=== PATIENT | female | born 1985 | race Caucasian/White ===

== ENCOUNTER 2016-04-04 13:16 | Emergency (ER) | payer OTHER ==
[~2016-04-04 13:16] MED LIST: PERCOCET1 TA1 PO; ZOFRAN ODT4 MG PO; ZYVOX600 MG PO
--- NOTE | 2016-04-04 15:39 | DIAGNOSTIC IMAGING REPORT ---
PROCEDURE: CT ABDOMEN/PELVIS W/O CONTRAST INDICATION: Flank pain and urinary tract infection. TECHNIQUE: Noncontrast axial images with sagittal and coronal reformations. COMPARISON: Compared to CT abdomen pelvis on 12/09/2013. FINDINGS: ABDOMEN: There is a 6 mm nonobstructing calculus in the mid portion of the right kidney which appears unchanged. Kidneys and ureters are otherwise normal. No evidence of urinary tract obstruction. Gallbladder, liver, spleen, pancreas, and aorta are normal. Bowel pattern is normal. Status post appendectomy (surgical mesh). PELVIS: Uterus and adnexal structures are within normal limits a small punctate dystrophic calcification of the ventral uterus. No evidence of free fluid. IMPRESSION: 1. There is a 6 mm nonobstructing calculus in the midportion of the right kidney which is unchanged. 2. Status post appendectomy. 3. Otherwise negative CT abdomen and pelvis. 4. Findings discussed with KEVIN Farias. All CT scans at this facility use dose modulation, iterative reconstruction, and/or weight-based dosing when appropriate to reduce radiation dose to as low as reasonably achievable.
--- NOTE | 2016-04-04 16:11 | ED ORDER SUMMARY ---
..... Patient: JASON PEREZ OrderSheet [facility] VisitID: [id number] [address] [place] [address] 30y, F Registration Date/Time: 04/04/2016 ORDER SHEET Weight: 63.5 kg (stated) Allergies: No Known Drug Allergy GENERAL ORDERS: UA-Culture if indicated Urgent (13:51 04/04/2016 LNations ER Tech1 per protocol) (14:10 NHouse ER Tech1) Urine Urgent (14:04/04/2016 HBivens A.R.N.P.) (14:10 NHouse ER Tech1) CT Abd/Pel wo Cont Urgent (14:34 04/04/2016 HBivens A.R.N.P.) (Ack 14:35 NHouse ER Tech1) (14:56 Becca) CBC w Diff Urgent (14:36 04/04/2016 HBivens A.R.N.P.) (Ack 14:38 NHouse ER Tech1) (15:18 SRoberts R.N.) BMP Urgent (14:36 04/04/2016 HBivens A.R.N.P.) (Ack 14:38 NHouse ER Tech1) (15:18 SRoberts R.N.) MEDICATION ORDERS: Toradol IM 60 mg (NOW) (14:34 04/04/2016 HBivens A.R.N.P.) (Cancelled: Other14:35 HBivens A.R.N.P.) Zofran ODT PO 4 mg (NOW) (14:34 04/04/2016 HBivens A.R.N.P.) (Cancelled: Physician Order15:15 SRoberts R.N.) IV FLUIDS: IV NS : initial bolus 1000 mL (1000 mL/hr), then none - for X1 (NOW) (14:35 04/04/2016 HBivens A.R.N.P.) (Ack 14:45 SRoberts R.N.) (15:16 SRoberts R.N.) Toradol IV 30 mg (NOW) (14:35 04/04/2016 HBivens A.R.N.P.) (Ack 14:45 SRoberts R.N.) (15:17 SRoberts R.N.) IV Saline Lock (14:36 04/04/2016 HBivens A.R.N.P.) (Ack 14:45 SRoberts R.N.) (15:15 SRoberts R.N.) Zofran IV 4 mg (NOW) (15:17 04/04/2016 SRoberts R.N. verbal order read back to HBivens A.R.N.P.) (15:18 SRoberts R.N.) ORDER SHEET NOTES: [Electronically signed by Mary Jane Holbrook R.N. (16:28 04/04/2016)] [Electronically signed by Debora De La FuenteRChivoNChivoPChivo (22:04 04/04/2016)] [Electronically locked/signed by Mary Jane Holbrook R.N. (16:28 04/04/2016)]
--- NOTE | 2016-04-04 16:11 | ED ORDER SUMMARY ---
..... Patient: JASON PEREZ OrderSheet [facility] VisitID: [id number] [address] [place] [address] 30y, F Registration Date/Time: 04/04/2016 ORDER SHEET Weight: 63.5 kg (stated) Allergies: No Known Drug Allergy GENERAL ORDERS: UA-Culture if indicated Urgent (13:51 04/04/2016 LNations ER Tech1 per protocol) (14:10 NHouse ER Tech1) Urine Urgent (14:04/04/2016 HBivens A.R.N.P.) (14:10 NHouse ER Tech1) CT Abd/Pel wo Cont Urgent (14:34 04/04/2016 HBivens A.R.N.P.) (Ack 14:35 NHouse ER Tech1) (14:56 Becca) CBC w Diff Urgent (14:36 04/04/2016 HBivens A.R.N.P.) (Ack 14:38 NHouse ER Tech1) (15:18 SRoberts R.N.) BMP Urgent (14:36 04/04/2016 HBivens A.R.N.P.) (Ack 14:38 NHouse ER Tech1) (15:18 SRoberts R.N.) MEDICATION ORDERS: Toradol IM 60 mg (NOW) (14:34 04/04/2016 HBivens A.R.N.P.) (Cancelled: Other14:35 HBivens A.R.N.P.) Zofran ODT PO 4 mg (NOW) (14:34 04/04/2016 HBivens A.R.N.P.) (Cancelled: Physician Order15:15 SRoberts R.N.) IV FLUIDS: IV NS : initial bolus 1000 mL (1000 mL/hr), then none - for X1 (NOW) (14:35 04/04/2016 HBivens A.R.N.P.) (Ack 14:45 SRoberts R.N.) (15:16 SRoberts R.N.) Toradol IV 30 mg (NOW) (14:35 04/04/2016 HBivens A.R.N.P.) (Ack 14:45 SRoberts R.N.) (15:17 SRoberts R.N.) IV Saline Lock (14:36 04/04/2016 HBivens A.R.N.P.) (Ack 14:45 SRoberts R.N.) (15:15 SRoberts R.N.) Zofran IV 4 mg (NOW) (15:17 04/04/2016 SRoberts R.N. verbal order read back to HBivens A.R.N.P.) (15:18 SRoberts R.N.) ORDER SHEET NOTES: [Electronically signed by Mary Jane Holbrook R.N. (16:28 04/04/2016)] [Electronically signed by Debora De La FuenteRChivoNChivoPChivo (22:04 04/04/2016)] [Electronically locked/signed by Mary Jane Holbrook R.N. (16:28 04/04/2016)]
--- NOTE | 2016-04-04 16:11 | ED NURSING NOTES ---
Clinical Report - Nurses [facility] [address] [place] [address] 04/04/2016 13:18 Patient: JASON PEREZ TRIAGE Triage time 13:53. Acuity: LEVEL 3. Chief Complaint: PAINFUL URINATION, URGENCY and FREQUENCY and ABDOMINAL PAIN, LOW BACK PAIN and RIGHT-SIDED and LEFT-SIDED FLANK PAIN ("Feels like kidney problems. 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 Alert. No acute distress. SEPSIS SCREEN: Sepsis Screen: negative. Negative (no infection suspected/documented). --14:01 Mary Jane Holbrook R.N. 13:53 04/04/16. BP: 110/67. HR: 86. RR: 18. O2 saturation: 97% on room air. Temp: 98.1 F. Pain level now: 01/11. --14:01 Mary Jane Holbrook R.N. 13:53 04/04/16. BP: 110/67. HR: 86. RR: 18. O2 saturation: 97% on room air. Temp: 98.1 F. Pain level now: 01/11. --14:02 Mary Jane Holbrook R.N. Weight: 63.5 kg stated. Height/Length: 62 inches Per Patient. BMI: 25.6. --13:59 Mary Jane Holbrook R.N. Medications Vitamins Oral. --13:56 Mary Jane Holbrook R.N. Tylenol Oral. --13:57 Mary Jane Holbrook R.N. Probiotic. --13:57 Mary Jane Holbrook R.N. Medication/allergy information source: the patient. --14:01 Mary Jane Holbrook R.N. Allergies No Known Drug Allergy. --13:56 Mary Jane Holbrook R.N. History Arrived by private vehicle. Historian: patient. Primary physician (graciela). ( dropped off). This started yesterday. 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 PAST MEDICAL HX: Immunizations: status is unknown. Last normal menstrual period- Mar 10. SOCIAL HX: Smoker- current status unknown. No alcohol use or drug use. No infectious disease exposure. FALL RISK ASSESSMENT: Fall risk assessment completed. No fall risk identified. NUTRITIONAL RISK ASSESSMENT: The nutritional risk assessment revealed no deficiencies. FUNCTIONAL ASSESSMENT: Functional assessment: no impairments noted. LEARNING NEEDS ASSESSMENT: The learning needs assessment revealed no barriers. SKIN INTEGRITY ASSESSMENT: Skin integrity risk assessment completed. No skin integrity risk identified. --14:01 Mary Jane Holbrook R.N. PROBLEMS: Dysfunctional Uterine Bleeding. Abscess. Cellulitis. Concussion. Last Tetanus. Kidney stones. Contusion. Fall. Nephrolithiasis. --13:58 Mary Jane Holbrook R.N. UTI - Urinary Tract Infection. --13:59 Mary Jane Holbrook R.N. ADDITIONAL SURGERIES: Appendectomy. [place] teeth. --13:58 Mary Jane Holbrook R.N. Interventions ID band on patient. To room. --14:01 Mary Jane Holbrook R.N. PHYSICAL ASSESSMENT Ambulatory to room. Patient gowned. GENERAL / NEURO / PSYCH: Alert. Oriented X 4. Appears anxious. HEENT: Mucous membranes are pink. RESPIRATORY: Respirations not labored. CVS: Capillary refill less than 2 seconds. GI / : Abdominal tenderness in the lower abdomen. SKIN: Skin is warm and dry. --14:02 Mary Jane Holbrook R.N. NURSING PROGRESS NOTES Patient gowned. Head of bed elevated. Two patient identifiers checked. Call light placed in reach. Side rails up x 1. Bed placed in lowest position. Brakes of bed on. Patient ready for evaluation. --14:02 Mary Jane Holbrook R.N. 14:02. ( As I'm leaving the room. The patient "asked for nausea and pain medicine now". Patient give and emesis bag.). --14:11 Mary Jane Holbrook R.N. 14:50 04/04/2016 Site #1 started via IV in the left antecubital space with an 20g angiocath, with aseptic technique and good blood return; one attempt. Blood drawn: rainbow set. Labeled in the presence of the patient and sent to the lab. Saline lock flushed with 10 mL saline. --15:15 Mary Jane Holbrook R.N. 14:51 04/04/2016 Started bag #1 1000 mL IV Fluids IV NS (Saline); bolus of 1000 mL over 1 hour(s) then at 1000 mL/hr over 1 minute(s) via site #1 via IV pump. Allergies verified and confirmed 5 rights. IV patency established. IV site checked: no pain, redness, or swelling. IV flushed thoroughly pre- and post-medication administration. --15:16 Mary Jane Holbrook R.N. 14:53 04/04/2016 Zofran (Ondansetron HCl) IVP 4 mg given over 1 minute(s) via site #1. Allergies verified and confirmed 5 rights. IV patency established. IV site checked: no pain, redness, or swelling. IV flushed thoroughly pre- and post-medication administration. IVP given by RN. --15:18 Mary Jane Holbrook R.N. 15:02 04/04/2016 Toradol IVP 30 mg given over 1 minute(s) via site #1. Allergies verified and confirmed 5 rights. IV patency established. IV site checked: no pain, redness, or swelling. IV flushed thoroughly pre- and post-medication administration. IVP given by RN. --15:17 Mary Jane Holbrook R.N. 16:04 04/04/2016 IV Fluids IV NS Discontinued: bag #1 infused. Total amount infused: 1000 mL. IV patency established. IV site checked: no pain, redness, or swelling. IV flushed thoroughly. --16:04 Mary Jane Holbrook R.N. 16:06 04/04/16. BP: 108/62. HR: 59. RR: 16. O2 saturation: 100%. Temp: deferred. Pain level now: 11/11. --16:07 Mary Jane Holbrook R.N. DISPOSITION / DISCHARGE 16:25. Condition at departure: improved. No learning barriers present. Discharge instructions provided and reviewed with the patient. Reviewed medication(s) side effects, precautions, dosing and course information. Prescription(s) given to the patient. Patient verbalized understanding. Written instructions provided in Lao. The patient was discharged home and accompanied by spouse. She left the Emergency Department ambulatory and via private vehicle. Spouse driving. --16:28 Mary Jane Holbrook R.N. 16:06 04/04/16. BP: 108/62. HR: 59. RR: 16. O2 saturation: 100%. Temp: deferred. Pain level now: 11/11. 15:05 04/04/16. BP: 110/67. HR: 70. RR: 18. O2 saturation: 100% on room air. Pain level now: 10/11. 13:53 04/04/16. BP: 110/67. HR: 86. RR: 18. O2 saturation: 97% on room air. Temp: 98.1 F. Pain level now: 01/11. --16:28 Mary Jane Holbrook R.N. Locked/Released at 04/04/2016 16:28 by Mary Jane Holbrook R.N.
--- NOTE | 2016-04-04 16:11 | ED CLINICAL REPORT ---
Clinical Report - Physicians/Mid Levels [facility] [address] [place] [address] 04/04/2016 13:18 Patient: JASON PEREZ Time Seen: 1357; upon arrival, initial patient contact, initial documentation, patient care assumed. Arrived- By private vehicle. Historian- patient. HISTORY OF PRESENT ILLNESS Chief Complaint: DYSURIA. This started yesterday and still present. It was abrupt in onset. The symptoms are described as severe. Modifying factors. Not worsened by anything. Not relieved by anything. The patient has had severe abdominal pain. The pain is described as generalized. She has had severe, constant right-sided, suprapubic and left-sided pelvic pain. She has had severe, constant right-sided, left-sided and centrally located lower back pain. She has had severe, constant right-sided and left-sided flank pain. No vaginal pain, vaginal discharge or hematuria. She has had pain with urination and urgency of urination. The patient has had urinary frequency. Sexually active. (says the pain feels like her kidney pain, but she also has lots of other issues going on that she wants checked out too). Similar symptoms previously: Occasionally, milder. Recent medical care: Not recently seen/assessed. REVIEW OF SYSTEMS The patient has had severe nausea. No vomiting or black stools. She has had severe diarrhea ('like 30 times'). This has occurred numerous times. No bloody, watery, mucous containing or blood-tinged diarrhea. She has had fever of 102 F, a severe, constant headache. No history of recent trauma and chills. She has had severe difficulty breathing (hurts to breathe). The patient denies dyspnea on exertion, orthopnea, paroxysmal nocturnal dyspnea and wheezing. She complains of severe, sharp left-sided, central and right-sided chest pain, currently severe. All systems otherwise negative, except as recorded above. PAST HISTORY See nurses notes. ( PROBLEMS: Dysfunctional Uterine Bleeding. Abscess. Cellulitis. Concussion. Last Tetanus. Kidney stones. Contusion. Fall. Nephrolithiasis. --13:58 Mary Jane Holbrook R.N. UTI - Urinary Tract Infection. --13:59 Mary Jane Holbrook R.N. ADDITIONAL SURGERIES: Appendectomy. [place] teeth. --13:58 Mary Jane Holbrook R.N.). SOCIAL HISTORY Never smoker. No alcohol use or drug use. No recent travel. Is a local resident. FAMILY HISTORY Negative. ADDITIONAL NOTES The nursing notes have been reviewed with agreement regarding the chief complaint, HPI, ROS, PMH and patient medications and allergies. PHYSICAL EXAM Vital Signs: 04/04/2016 13:53 BP: 110/67. HR: 86. RR: 18. O2 saturation: 97%. Temp: 98.1 F. Pain level now: 01/11. Have been reviewed as normal and appear to be correct. Appearance: Alert. Oriented X3. No acute distress. HEENT: Normal external inspection. ENT: Pharynx normal. Neck: Neck supple. CVS: Heart sounds normal. Respiratory: No respiratory distress. Breath sounds normal. Chest nontender. Abdomen: Soft. Severe tenderness diffusely. Bowel sounds normal. No organomegaly. No mass. Tenderness present. Back: Abnormal external inspection. Severe CVA tenderness on the right and left. (pt jumping every time I go to touch her, she jumps). Skin: Skin warm and dry. Normal skin color. No rash. Normal skin turgor. Extremities: Extremities nontender. No lower extremity edema. Neuro: Oriented X 3. Mood/affect normal. No motor deficit. No sensory deficit. LABS, X-RAYS, AND EKG Abdominal CT: . IMPRESSION: 1. There is a 6 mm nonobstructing calculus in the midportion of the right kidney which is unchanged. 2. Status post appendectomy. 3. Otherwise negative CT abdomen and pelvis. 4. Findings discussed with KEVIN Farias. All CT scans at this facility use dose modulation, iterative reconstruction, and/or weight-based dosing when appropriate to reduce radiation dose to as low as reasonably achievable. Electronically Final signed by:Stephen Alves MD 04/04/2016 3:38:21 PM. The study was interpreted by the radiologist and discussed with the radiologist. Interpretation time: 1535. Laboratory Tests: UA-Culture if indicated: (SHERRY: 04/04/2016 13:40) ( [facility] 04/04/2016 14:21) Final results Test Result Flag Units (Reference) URINE COLOR YELLOW URINE APPEARANCE CLEAR URINE GLUCOSE NEGATIVE (NEGATIVE) URINE BILIRUBIN NEGATIVE (NEGATIVE) URINE KETONE NEGATIVE (NEGATIVE) URINE SPECIFIC GRAVITY 1.020 (1.010-1.030) URINE PH 6.5 (5.0-8.0) URINE PROTEIN NEGATIVE (NEGATIVE) URINE UROBILINOGEN 0.2 EU/dL (0.2-1.0) URINE NITRITE POSITIVE (NEGATIVE) URINE BLOOD 1+ (NEGATIVE) URINE LEUK ESTERASE TRACE (NEGATIVE) URINE RBC 3-5 rbc/hpf (0-1) URINE WBC 10-15 wbc/hpf (0-1) URINE EPITHELIAL CELLS 3-5 EPI/hpf (0-5) URINE BACTERIA FEW (1+) (NONE SEEN) URINE COMMENT CULTURE INDICATED 1+ MUCUSURINE CULTURES ARE SET-UP BASED ON THE FOLLOWING CRITERIA:POSITIVE NITRITEPOSITIVE LEUKOCYTE ESTERASEGREATER THAN 10 WHITE BLOOD CELLSMODERATE (2+) OR GREATER BACTERIA Urine: (SHERRY: 04/04/2016 13:40) ( [facility] 04/04/2016 14:09) Final results Test Result Flag Units (Reference) URINE NEGATIVE CBC w Diff: (SHERRY: 04/04/2016 15:00) ( [facility] 04/04/2016 15:20) Final results Test Result Flag Units (Reference) WHITE BLOOD COUNT 6.5 K/uL (4.5-11.5) RED BLOOD COUNT 4.36 M/uL (4.00-5.20) HEMOGLOBIN 13.7 gm/dL (12.0-16.0) HEMATOCRIT 40.9 % (36.0-46.0) MEAN CELL VOLUME 94 fL (80-100) MEAN CORPUSCULAR HGB 32 pg (26-34) MEAN CORPUSCULAR HGB CONC 34 g/dL (31-37) RED CELL DISTRIBUTION WIDTH 12.5 % (11.6-14.8) PLATELET COUNT 168 K/uL (150-400) NEUTROPHIL % 73.7 % (50-75) LYMPH % 17.6 L % (25-40) MONO % 7.2 % (3-14) EOSINOPHIL % 0.9 % (0-4) BASOPHIL % 0.6 % (0-2) BMP: (SHERRY: 04/04/2016 15:00) ( Msg[facility]cv[facility] 04/04/2016 15:41) Final results Test Result Flag Units (Reference) GLUCOSE 86 mg/dL (70-110) BUN 13 mg/dL (7-18) CREATININE 0.5 L mg/dL (0.6-1.3) Estimated GFR >60 mL/min Estimated GFR- >60 mL/min Note: Persistent reduction over 3 months in eGFR<60 mL/min/1.73 m2 defines CKD. Patients with eGFR values>=60 mL/min/1.73 m2 may also have CKD if evidence ofpersistent proteinuria. Additional information may be foundat www.kidney.org. SODIUM 140 mmol/L (136-145) POTASSIUM 3.8 mmol/L (3.5-5.1) CHLORIDE 104 mmol/L (98-107) CARBON DIOXIDE 28 mmol/L (21-32) CALCIUM 8.8 mg/dL (8.5-10.1) . PROGRESS AND PROCEDURES Course of Care: 1423. pt wanting more answers, not satisfied with the dx of uti, stating she was dx with kidney stone approx x3 years ago, and was told she had stone stuck in her kidney, if she has uti, then why do her kidneys hurt, and how do we not know if she has kidney infection vs bladder, giving me this long story about how her brother had 40 stones at one time, and how kidney issues run in her family, and how she knows there is something wrong with her kidney, she has infection or stone or something else pt telling me she never followed up with specialist because her insurance changed, and doesn't make appts with her pcp because it is too hard to get in around her work schedule, so she just uses the walk in clinic instead 1550. went to discuss ct and lab results, and now pt still telling me she knows her pain is from her kidneys, attempted to use example how labor or period pain can be in your back, organ pain can be referred, but pt still insisting its something wrong with her kidneys, pt then asking about her other issues, the diarrhea, and now c/o blood in the stool, chest pain, back pain and how it hurts to breathe, and neck pain and her headaches, pt encouraged to f/u with per pcp. Patient counseled in person regarding the patient's stable condition, test results and diagnosis. 14:23. Differential Diagnosis: Other possible considerations: psychogenic, substance abuse, uti, pyelo, kidney stone, diarrhea, dehydration, electrolyte imbalance, viral illness, flu, pneumonia, chest wall pain. Above considerations are based on history, physical exam and laboratory data. Differential diagnosis was discussed with patient. Disposition: Discharged home in good and improved condition (16:11). Condition: good and stable. CLINICAL IMPRESSION Acute urinary tract infection with cystitis. No pyelonephritis or hematuria. Not associated with indwelling catheter or obstruction. INSTRUCTIONS Drink plenty of fluids for the next 24 hours until better. Warnings: GENERAL WARNINGS: Return or contact your physician immediately if your condition worsens or changes unexpectedly, if not improving as expected, or if other problems arise. Specifically return if problem worsens. Prescription Medications: Zofran 4 mg: Take 1 orally every six hours as needed for nausea/vomiting. Dispense ten (10). No refills. Substitution is permissible. Septra DS 800 mg / 160 mg: take 1 tablet orally every 12 hours for 7 days. Dispense fourteen (14). No refills. Substitution is permissible. Toradol 10 mg tablets: Take 1 tablet orally every 6 hours as needed. Dispense fifteen (15). No refills. Substitution is permissible. Understanding of the discharge instructions verbalized by patient. Follow-up with: Jose Butler MD, Urology, , [address] [place] [address], , [place], [id number] Follow up in about one week as needed. Call for an appointment. Summary of care provided to patient. (Electronically signed by Debora De La Fuente A.R.N.P. 04/04/2016 22:04)
--- NOTE | 2016-04-04 22:04 | ED MAR SUMMARY ---
..... Medication Administration Record [facility] [address] [place] [address] Patient: JASON PEREZ Visit ID: [id number] 30y, F Weight: 63.5 kg Height/Length: 62 in BMI: 25.6 ALLERGIES: No Known Drug Allergy Start 14:51 04/04/2016 Mary Jane Holbrook R.N., Stop 16:04 04/04/2016 Mary Jane Holbrook R.N. Medication Administered: IV NS (SALINE), Dose: IV Fluids over 1 minute(s), Rate: 1000 mL/hr, Bolus: 1000 mL over 1 hour(s), Dispensed: 1000 mL bag, Site: #1 left AC. Medication Ordered: IV NS : initial bolus 1000 mL (1000 mL/hr), then none - for X1 (NOW). Given 14:53 04/04/2016 Mary Jane Holbrook R.N. Medication Administered: ZOFRAN [IVP] (ONDANSETRON HCL), Dose: 4 mg IVP over 1 minute(s), Site: #1 left AC. Medication Ordered: Zofran IV 4 mg (NOW). Given 15:02 04/04/2016 Mary Jane Holbrook R.N. Medication Administered: TORADOL [IVP], Dose: 30 mg IVP over 1 minute(s), Site: #1 left AC. Medication Ordered: Toradol IV 30 mg (NOW).
--- NOTE | 2016-04-04 22:04 | ED MAR SUMMARY ---
..... Medication Administration Record [facility] [address] [place] [place] [address] Patient: JASON PEREZ Visit ID: [id number] 30y, F Weight: 63.5 kg Height/Length: 62 in BMI: 25.6 ALLERGIES: No Known Drug Allergy Start 14:51 04/04/2016 Mary Jane Holbrook R.N., Stop 16:04 04/04/2016 Mary Jane Holbrook R.N. Medication Administered: IV NS (SALINE), Dose: IV Fluids over 1 minute(s), Rate: 1000 mL/hr, Bolus: 1000 mL over 1 hour(s), Dispensed: 1000 mL bag, Site: #1 left AC. Medication Ordered: IV NS : initial bolus 1000 mL (1000 mL/hr), then none - for X1 (NOW). Given 14:53 04/04/2016 Mary Jane Holbrook R.N. Medication Administered: ZOFRAN [IVP] (ONDANSETRON HCL), Dose: 4 mg IVP over 1 minute(s), Site: #1 left AC. Medication Ordered: Zofran IV 4 mg (NOW). Given 15:02 04/04/2016 Mary Jane Holbrook R.N. Medication Administered: TORADOL [IVP], Dose: 30 mg IVP over 1 minute(s), Site: #1 left AC. Medication Ordered: Toradol IV 30 mg (NOW).
--- NOTE | 2016-04-04 22:04 | ED MED RECONCILIATION SUMMARY ---
Patient: JASON PEREZ Medication Reconciliation Report [facility] VisitID: [id number] [address] [place] [address] 30y, F Registration Date/Time: 04/04/2016 Weight: 63.5 kg Height/Length: 62 in. BMI: 25.6 ALLERGIES: No Known Drug Allergy The patient's Home Medications are listed below: THE FOLLOWING MEDICATIONS NEED TO BE RECONCILED: Vitamins Oral Probiotic Tylenol Oral The source(s) of the original Home Medication information: patient The following Medications were given to the patient in the Emergency Department: IV NS IV Fluids bolus 1000 mL over 1 hour(s), then 1000 mL/hr, administered: 04/04/2016 2:51:00 PM Toradol [IVP] IVP 30 mg, administered: 04/04/2016 3:02:00 PM Zofran [IVP] IVP 4 mg, administered: 04/04/2016 2:53:00 PM The following Medications were prescribed to the patient: Zofran 4 mg: Take 1 orally every six hours as needed for nausea/vomiting. Dispense ten (10). No refills. Substitution is permissible. -- Debora De La Fuente, A.R.N.P. Septra DS 800 mg / 160 mg: take 1 tablet orally every 12 hours for 7 days. Dispense fourteen (14). No refills. Substitution is permissible. -- Debora De La Fuente, A.R.N.P. Toradol 10 mg tablets: Take 1 tablet orally every 6 hours as needed. Dispense fifteen (15). No refills. Substitution is permissible. -- Debora De La Fuente A.R.N.P.
--- NOTE | 2016-04-04 22:04 | ED DISCHARGE INSTRUCTIONS ---
Patient: JASON PEREZ General Instructions [facility] VisitID: [id number] [address] [place] [address] 30y, F Registration Date/Time: 04/04/2016 Acute urinary tract infection with cystitis. No pyelonephritis or hematuria. Not associated with indwelling catheter or obstruction. INSTRUCTIONS Drink plenty of fluids for the next 24 hours until better. Warnings: GENERAL WARNINGS: Return or contact your physician immediately if your condition worsens or changes unexpectedly, if not improving as expected, or if other problems arise. Specifically return if problem worsens. Prescription Medications: Zofran 4 mg: Take 1 orally every six hours as needed for nausea/vomiting. Dispense ten (10). No refills. Substitution is permissible. Septra DS 800 mg / 160 mg: take 1 tablet orally every 12 hours for 7 days. Dispense fourteen (14). No refills. Substitution is permissible. Toradol 10 mg tablets: Take 1 tablet orally every 6 hours as needed. Dispense fifteen (15). No refills. Substitution is permissible. Understanding of the discharge instructions verbalized by patient. Follow-up with: Jose Butler MD, Urology, , [address] [place] [address] Follow up in about one week as needed. Call for an appointment. Summary of care provided to patient. ADDITIONAL INFORMATION Bladder Infection,Female (Adult) A bladder infection ("cystitis" or "UTI") usually causes a constant urge to urinate and a burning when passing urine. Urine may be cloudy, smelly or dark. There may be pain in the lower abdomen. A bladder infection occurs when bacteria from the vaginal area enter the bladder opening (urethra). This can occur from sexual intercourse, wearing tight clothing, dehydration and other factors. Home Care: Drink lots of fluids (at least 6-8 glasses a day, unless you must restrict fluids for other medical reasons). This will force the medicine into your urinary system and flush the bacteria out of your body. Avoid sexual intercourse until your symptoms are gone. Avoid caffeine, alcohol and spicy foods. These can irritate the bladder. A bladder infection is treated with antibiotics. You may also be given Pyridium (generic = phenazopyridine) to reduce the burning sensation. This medicine will cause your urine to become a bright orange color. The orange urine may stain clothing. You may wear a pad or panty-liner to protect clothing. Preventing Future Infections: Always wipe from front to back after a bowel movement. Keep the genital area clean and dry. Drink plenty of fluids each day to avoid dehydration. Both sexual partners should wash before intercourse. Urinate right after intercourse to flush out the bladder. Wear cotton underwear and cotton-lined panty hose; avoid tight-fitting pants. If you are on control pills and are having frequent bladder infections, discuss with your doctor. Follow Up: Return to this facility or see your doctor if ALL symptoms are not gone after three days of treatment. Get Prompt Medical Attention if any of the following occur: Fever of 100.4F (38C) or higher, or as directed by your healthcare provider No improvement by the third day of treatment Increasing back or abdominal pain Repeated vomiting; unable to keep medicine down Weakness, dizziness or fainting Vaginal discharge Pain, redness or swelling in the labia (outer vaginal area) Ondansetron Oral disintegrating tablet What is this medicine? ONDANSETRON (on CATALINA se sabina) is used to treat nausea and vomiting caused by chemotherapy. It is also used to prevent or treat nausea and vomiting after surgery. How should I use this medicine? These tablets are made to dissolve in the mouth. Do not try to push the tablet through the foil backing. With dry hands, peel away the foil backing and gently remove the tablet. Place the tablet in the mouth and allow it to dissolve, then swallow. While you may take these tablets with water, it is not necessary to do so. Talk to your entry level project coordinator regarding the use of this medicine in children. Special care may be needed. What side effects may I notice from receiving this medicine? Side effects that you should report to your doctor or health care manager as soon as possible: allergic reactions like skin rash, itching or hives, swelling of the face, lips, or tongue breathing problems dizziness fast or irregular heartbeat feeling faint or lightheaded, falls fever and chills swelling of the hands and feet tightness in the chest Side effects that usually do not require medical attention (report to your doctor or health care manager if they continue or are bothersome): constipation or diarrhea headache What may interact with this medicine? Do not take this medicine with any of the following medications: -apomorphine -cisapride -dofetilide -dronedarone -pimozide -thioridazine -ziprasidone This medicine may also interact with the following medications: -carbamazepine -phenytoin -rifampicin -tramadol -other medicines that prolong the QT interval (cause an abnormal heart rhythm) What if I miss a dose? If you miss a dose, take it as soon as you can. If it is almost time for your next dose, take only that dose. Do not take double or extra doses. Where should I keep my medicine? Keep out of the reach of children. Store between 2 and 30 degrees C (36 and 86 degrees F). Throw away any unused medicine after the expiration date. What should I tell my health care provider before I take this medicine? They need to know if you have any of these conditions: heart disease history of irregular heartbeat liver disease low levels of magnesium or potassium in the blood an unusual or allergic reaction to ondansetron, granisetron, other medicines, foods, dyes, or preservatives or trying to get breast-feeding What should I watch for while using this medicine? Check with your doctor or health care manager as soon as you can if you have any sign of an allergic reaction. Sulfamethoxazole, Trimethoprim Oral tablet What is this medicine? SULFAMETHOXAZOLE; TRIMETHOPRIM or SMX-TMP (suhl fuh meth OK destiny zohl; trye METH oh prim) is a combination of a sulfonamide antibiotic and a second antibiotic, trimethoprim. It is used to treat or prevent certain kinds of bacterial infections. It will not work for colds, flu, or other viral infections. How should I use this medicine? Take this medicine by mouth with a full glass of water. Follow the directions on the prescription label. Take your medicine at regular intervals. Do not take it more often than directed. Do not skip doses or stop your medicine early. Talk to your entry level project coordinator regarding the use of this medicine in children. Special care may be needed. This medicine has been used in children as young as 2 months of age. What side effects may I notice from receiving this medicine? Side effects that you should report to your doctor or health care manager as soon as possible: allergic reactions like skin rash or hives, swelling of the face, lips, or tongue breathing problems fever or chills, sore throat irregular heartbeat, chest pain joint or muscle pain pain or difficulty passing urine red pinpoint spots on skin redness, blistering, peeling or loosening of the skin, including inside the mouth unusual bleeding or bruising unusually weak or tired yellowing of the eyes or skin Side effects that usually do not require medical attention (report to your doctor or health care manager if they continue or are bothersome): diarrhea dizziness headache loss of appetite nausea, vomiting nervousness What may interact with this medicine? Do not take this medicine with any of the following medications: aminobenzoate potassium dofetilide metronidazole This medicine may also interact with the following medications: LYNDA inhibitors like benazepril, enalapril, lisinopril, and ramipril cyclosporine digoxin diuretics indomethacin medicines for diabetes methenamine methotrexate phenytoin potassium supplements pyrimethamine sulfinpyrazone tricyclic antidepressants warfarin What if I miss a dose? If you miss a dose, take it as soon as you can. If it is almost time for your next dose, take only that dose. Do not take double or extra doses. Where should I keep my medicine? Keep out of the reach of children. Store at room temperature between 20 to 25 degrees C (68 to 77 degrees F). Protect from light. Throw away any unused medicine after the expiration date. What should I tell my health care provider before I take this medicine? They need to know if you have any of these conditions: anemia asthma being treated with anticonvulsants if you frequently drink alcohol containing drinks kidney disease liver disease low level of folic acid or [id number] dehydrogenase poor nutrition or malabsorption porphyria severe allergies thyroid disorder an unusual or allergic reaction to sulfamethoxazole, trimethoprim, sulfa drugs, other medicines, foods, dyes, or preservatives or trying to get breast-feeding What should I watch for while using this medicine? Tell your doctor or health care manager if your symptoms do not improve. Drink several glasses of water a day to reduce the risk of kidney problems. Do not treat diarrhea with over the counter products. Contact your doctor if you have diarrhea that lasts more than 2 days or if it is severe and watery. This medicine can make you more sensitive to the sun. Keep out of the sun. If you cannot avoid being in the sun, wear protective clothing and use a sunscreen. Do not use sun lamps or tanning beds/booths. Ketorolac Tromethamine Oral tablet What is this medicine? KETOROLAC (mainor waldron ROLE ak) is a non-steroidal anti-inflammatory drug (NSAID). It is used for a short while to treat moderate to severe pain, including pain after surgery. It should not be used for more than 5 days. How should I use this medicine? Take this medicine by mouth with a full glass of water. Follow the directions on the prescription label. Take your medicine at regular intervals. Do not take your medicine more often than directed. Do not take more than the recommended dose. A special MedGuide will be given to you by the pharmacist with each prescription and refill. Be sure to read this information carefully each time. Talk to your entry level project coordinator regarding the use of this medicine in children. While this drug may be prescribed for children as young as 16 years of age for selected conditions, precautions do apply. Patients over 65 years old may have a stronger reaction and need a smaller dose. What side effects may I notice from receiving this medicine? Side effects that you should report to your doctor or health care manager as soon as possible: allergic reactions like skin rash, itching or hives, swelling of the face, lips, or tongue black or tarry stools breathing problems changes in vision chest pain high blood pressure nausea or vomiting redness, blistering, peeling or loosening of the skin, including inside the mouth severe abdominal pain slurred speech or weakness on one side of the body unexplained weight gain or swelling unusual bleeding or bruising unusually weak or tired yellowing of eyes or skin Side effects that usually do not require medical attention (report to your doctor or health care manager if they continue or are bothersome): diarrhea dizziness headache heartburn What may interact with this medicine? Do not take this medicine with any of the following medications: aspirin and aspirin-like medicines cidofovir methotrexate NSAIDs, medicines for pain and inflammation, like ibuprofen or naproxen pemetrexed probenecid This medicine may also interact with the following medications: alcohol alendronate alprazolam carbamazepine cyclosporine diuretics flavocoxid fluoxetine ginkgo lithium medicines for high blood pressure like enalapril medicines that affect platelets like pentoxifylline medicines that treat or prevent blood clots like heparin, warfarin muscle relaxants phenytoin steroid medicines like prednisone or cortisone thiothixene What if I miss a dose? If you miss a dose, take it as soon as you can. If it is almost time for your next dose, take only that dose. Do not take double or extra doses. Where should I keep my medicine? Keep out of the reach of children. Store at room temperature between 20 and 25 degrees C (68 and 77 degrees F). Throw away any unused medicine after the expiration date. What should I tell my health care provider before I take this medicine? They need to know if you have any of these conditions: asthma bleeding problems like hemophilia cigarette smoker drink more than 3 alcohol containing drinks a day heart disease or circulation problems such as heart failure or leg edema (fluid retention) high blood pressure kidney disease liver disease stomach bleeding or ulcers an unusual or allergic reaction to ketorolac, aspirin, other NSAIDs, other medicines, foods, dyes, or preservatives or trying to get breast-feeding What should I watch for while using this medicine? Tell your doctor or health care manager if your pain does not get better. Talk to your doctor before taking another medicine for pain. Do not treat yourself. This medicine does not prevent heart attack or stroke. In fact, this medicine may increase the chance of a heart attack or stroke. The chance may increase with longer use of this medicine and in people who have heart disease. If you take aspirin to prevent heart attack or stroke, talk with your doctor or health care manager. Do not take medicines such as ibuprofen and naproxen with this medicine. Side effects such as stomach upset, nausea, or ulcers may be more likely to occur. Many medicines available without a prescription should not be taken with this medicine. This medicine can cause ulcers and bleeding in the stomach and intestines at any time during treatment. Do not smoke cigarettes or drink alcohol. These increase irritation to your stomach and can make it more susceptible to damage from this medicine. Ulcers and bleeding can happen without warning symptoms and can cause . You may get drowsy or dizzy. Do not drive, use machinery, or do anything that needs mental alertness until you know how this medicine affects you. Do not stand or sit up quickly, especially if you are an older patient. This reduces the risk of dizzy or fainting spells. This medicine can cause you to bleed more easily. Try to avoid damage to your teeth and gums when you brush or floss your teeth. You have been given the following additional information: Bladder Infection, Female (Adult) Ondansetron Oral disintegrating tablet Sulfamethoxazole, Trimethoprim Oral tablet Ketorolac Tromethamine Oral tablet (Electronically signed by Debora De La Fuente A.R.N.P. 04/04/2016 22:04)
--- NOTE | 2016-04-04 22:04 | ED MED RECONCILIATION SUMMARY ---
Patient: JASON PEREZ Medication Reconciliation Report [facility] VisitID: [id number] [address] [place] [address] 30y, F Registration Date/Time: 04/04/2016 Weight: 63.5 kg Height/Length: 62 in. BMI: 25.6 ALLERGIES: No Known Drug Allergy The patient's Home Medications are listed below: THE FOLLOWING MEDICATIONS NEED TO BE RECONCILED: Vitamins Oral Probiotic Tylenol Oral The source(s) of the original Home Medication information: patient The following Medications were given to the patient in the Emergency Department: IV NS IV Fluids bolus 1000 mL over 1 hour(s), then 1000 mL/hr, administered: 04/04/2016 2:51:00 PM Toradol [IVP] IVP 30 mg, administered: 04/04/2016 3:02:00 PM Zofran [IVP] IVP 4 mg, administered: 04/04/2016 2:53:00 PM The following Medications were prescribed to the patient: Zofran 4 mg: Take 1 orally every six hours as needed for nausea/vomiting. Dispense ten (10). No refills. Substitution is permissible. -- Debora De La Fuente, A.R.N.P. Septra DS 800 mg / 160 mg: take 1 tablet orally every 12 hours for 7 days. Dispense fourteen (14). No refills. Substitution is permissible. -- Debora De La Fuente, A.R.N.P. Toradol 10 mg tablets: Take 1 tablet orally every 6 hours as needed. Dispense fifteen (15). No refills. Substitution is permissible. -- Debora De La Fuente A.R.N.P.
--- NOTE | 2016-04-04 22:04 | ED DISCHARGE INSTRUCTIONS ---
Patient: JASON PEREZ General Instructions Merged With [facility] VisitID: [id number] [address] [place] [address] 30y, F Registration Date/Time: 04/04/2016 Acute urinary tract infection with cystitis. No pyelonephritis or hematuria. Not associated with indwelling catheter or obstruction. INSTRUCTIONS Drink plenty of fluids for the next 24 hours until better. Warnings: GENERAL WARNINGS: Return or contact your physician immediately if your condition worsens or changes unexpectedly, if not improving as expected, or if other problems arise. Specifically return if problem worsens. Prescription Medications: Zofran 4 mg: Take 1 orally every six hours as needed for nausea/vomiting. Dispense ten (10). No refills. Substitution is permissible. Septra DS 800 mg / 160 mg: take 1 tablet orally every 12 hours for 7 days. Dispense fourteen (14). No refills. Substitution is permissible. Toradol 10 mg tablets: Take 1 tablet orally every 6 hours as needed. Dispense fifteen (15). No refills. Substitution is permissible. Understanding of the discharge instructions verbalized by patient. Follow-up with: Jose Butler MD, Urology, , [address] [place] [address] Follow up in about one week as needed. Call for an appointment. Summary of care provided to patient. ADDITIONAL INFORMATION Bladder Infection,Female (Adult) A bladder infection ("cystitis" or "UTI") usually causes a constant urge to urinate and a burning when passing urine. Urine may be cloudy, smelly or dark. There may be pain in the lower abdomen. A bladder infection occurs when bacteria from the vaginal area enter the bladder opening (urethra). This can occur from sexual intercourse, wearing tight clothing, dehydration and other factors. Home Care: Drink lots of fluids (at least 6-8 glasses a day, unless you must restrict fluids for other medical reasons). This will force the medicine into your urinary system and flush the bacteria out of your body. Avoid sexual intercourse until your symptoms are gone. Avoid caffeine, alcohol and spicy foods. These can irritate the bladder. A bladder infection is treated with antibiotics. You may also be given Pyridium (generic = phenazopyridine) to reduce the burning sensation. This medicine will cause your urine to become a bright orange color. The orange urine may stain clothing. You may wear a pad or panty-liner to protect clothing. Preventing Future Infections: Always wipe from front to back after a bowel movement. Keep the genital area clean and dry. Drink plenty of fluids each day to avoid dehydration. Both sexual partners should wash before intercourse. Urinate right after intercourse to flush out the bladder. Wear cotton underwear and cotton-lined panty hose; avoid tight-fitting pants. If you are on control pills and are having frequent bladder infections, discuss with your doctor. Follow Up: Return to this facility or see your doctor if ALL symptoms are not gone after three days of treatment. Get Prompt Medical Attention if any of the following occur: Fever of 100.4F (38C) or higher, or as directed by your healthcare provider No improvement by the third day of treatment Increasing back or abdominal pain Repeated vomiting; unable to keep medicine down Weakness, dizziness or fainting Vaginal discharge Pain, redness or swelling in the labia (outer vaginal area) Ondansetron Oral disintegrating tablet What is this medicine? ONDANSETRON (on CATALINA se sabina) is used to treat nausea and vomiting caused by chemotherapy. It is also used to prevent or treat nausea and vomiting after surgery. How should I use this medicine? These tablets are made to dissolve in the mouth. Do not try to push the tablet through the foil backing. With dry hands, peel away the foil backing and gently remove the tablet. Place the tablet in the mouth and allow it to dissolve, then swallow. While you may take these tablets with water, it is not necessary to do so. Talk to your motor carrier inspector regarding the use of this medicine in children. Special care may be needed. What side effects may I notice from receiving this medicine? Side effects that you should report to your doctor or health animal caretaker as soon as possible: allergic reactions like skin rash, itching or hives, swelling of the face, lips, or tongue breathing problems dizziness fast or irregular heartbeat feeling faint or lightheaded, falls fever and chills swelling of the hands and feet tightness in the chest Side effects that usually do not require medical attention (report to your doctor or health animal caretaker if they continue or are bothersome): constipation or diarrhea headache What may interact with this medicine? Do not take this medicine with any of the following medications: -apomorphine -cisapride -dofetilide -dronedarone -pimozide -thioridazine -ziprasidone This medicine may also interact with the following medications: -carbamazepine -phenytoin -rifampicin -tramadol -other medicines that prolong the QT interval (cause an abnormal heart rhythm) What if I miss a dose? If you miss a dose, take it as soon as you can. If it is almost time for your next dose, take only that dose. Do not take double or extra doses. Where should I keep my medicine? Keep out of the reach of children. Store between 2 and 30 degrees C (36 and 86 degrees F). Throw away any unused medicine after the expiration date. What should I tell my health care provider before I take this medicine? They need to know if you have any of these conditions: heart disease history of irregular heartbeat liver disease low levels of magnesium or potassium in the blood an unusual or allergic reaction to ondansetron, granisetron, other medicines, foods, dyes, or preservatives or trying to get breast-feeding What should I watch for while using this medicine? Check with your doctor or health animal caretaker as soon as you can if you have any sign of an allergic reaction. Sulfamethoxazole, Trimethoprim Oral tablet What is this medicine? SULFAMETHOXAZOLE; TRIMETHOPRIM or SMX-TMP (suhl fuh meth OK destiny zohl; trye METH oh prim) is a combination of a sulfonamide antibiotic and a second antibiotic, trimethoprim. It is used to treat or prevent certain kinds of bacterial infections. It will not work for colds, flu, or other viral infections. How should I use this medicine? Take this medicine by mouth with a full glass of water. Follow the directions on the prescription label. Take your medicine at regular intervals. Do not take it more often than directed. Do not skip doses or stop your medicine early. Talk to your motor carrier inspector regarding the use of this medicine in children. Special care may be needed. This medicine has been used in children as young as 2 months of age. What side effects may I notice from receiving this medicine? Side effects that you should report to your doctor or health animal caretaker as soon as possible: allergic reactions like skin rash or hives, swelling of the face, lips, or tongue breathing problems fever or chills, sore throat irregular heartbeat, chest pain joint or muscle pain pain or difficulty passing urine red pinpoint spots on skin redness, blistering, peeling or loosening of the skin, including inside the mouth unusual bleeding or bruising unusually weak or tired yellowing of the eyes or skin Side effects that usually do not require medical attention (report to your doctor or health animal caretaker if they continue or are bothersome): diarrhea dizziness headache loss of appetite nausea, vomiting nervousness What may interact with this medicine? Do not take this medicine with any of the following medications: aminobenzoate potassium dofetilide metronidazole This medicine may also interact with the following medications: LYNDA inhibitors like benazepril, enalapril, lisinopril, and ramipril cyclosporine digoxin diuretics indomethacin medicines for diabetes methenamine methotrexate phenytoin potassium supplements pyrimethamine sulfinpyrazone tricyclic antidepressants warfarin What if I miss a dose? If you miss a dose, take it as soon as you can. If it is almost time for your next dose, take only that dose. Do not take double or extra doses. Where should I keep my medicine? Keep out of the reach of children. Store at room temperature between 20 to 25 degrees C (68 to 77 degrees F). Protect from light. Throw away any unused medicine after the expiration date. What should I tell my health care provider before I take this medicine? They need to know if you have any of these conditions: anemia asthma being treated with anticonvulsants if you frequently drink alcohol containing drinks kidney disease liver disease low level of folic acid or [id number] dehydrogenase poor nutrition or malabsorption porphyria severe allergies thyroid disorder an unusual or allergic reaction to sulfamethoxazole, trimethoprim, sulfa drugs, other medicines, foods, dyes, or preservatives or trying to get breast-feeding What should I watch for while using this medicine? Tell your doctor or health animal caretaker if your symptoms do not improve. Drink several glasses of water a day to reduce the risk of kidney problems. Do not treat diarrhea with over the counter products. Contact your doctor if you have diarrhea that lasts more than 2 days or if it is severe and watery. This medicine can make you more sensitive to the sun. Keep out of the sun. If you cannot avoid being in the sun, wear protective clothing and use a sunscreen. Do not use sun lamps or tanning beds/booths. Ketorolac Tromethamine Oral tablet What is this medicine? KETOROLAC (mainor waldron ROLE ak) is a non-steroidal anti-inflammatory drug (NSAID). It is used for a short while to treat moderate to severe pain, including pain after surgery. It should not be used for more than 5 days. How should I use this medicine? Take this medicine by mouth with a full glass of water. Follow the directions on the prescription label. Take your medicine at regular intervals. Do not take your medicine more often than directed. Do not take more than the recommended dose. A special MedGuide will be given to you by the pharmacist with each prescription and refill. Be sure to read this information carefully each time. Talk to your motor carrier inspector regarding the use of this medicine in children. While this drug may be prescribed for children as young as 16 years of age for selected conditions, precautions do apply. Patients over 65 years old may have a stronger reaction and need a smaller dose. What side effects may I notice from receiving this medicine? Side effects that you should report to your doctor or health animal caretaker as soon as possible: allergic reactions like skin rash, itching or hives, swelling of the face, lips, or tongue black or tarry stools breathing problems changes in vision chest pain high blood pressure nausea or vomiting redness, blistering, peeling or loosening of the skin, including inside the mouth severe abdominal pain slurred speech or weakness on one side of the body unexplained weight gain or swelling unusual bleeding or bruising unusually weak or tired yellowing of eyes or skin Side effects that usually do not require medical attention (report to your doctor or health animal caretaker if they continue or are bothersome): diarrhea dizziness headache heartburn What may interact with this medicine? Do not take this medicine with any of the following medications: aspirin and aspirin-like medicines cidofovir methotrexate NSAIDs, medicines for pain and inflammation, like ibuprofen or naproxen pemetrexed probenecid This medicine may also interact with the following medications: alcohol alendronate alprazolam carbamazepine cyclosporine diuretics flavocoxid fluoxetine ginkgo lithium medicines for high blood pressure like enalapril medicines that affect platelets like pentoxifylline medicines that treat or prevent blood clots like heparin, warfarin muscle relaxants phenytoin steroid medicines like prednisone or cortisone thiothixene What if I miss a dose? If you miss a dose, take it as soon as you can. If it is almost time for your next dose, take only that dose. Do not take double or extra doses. Where should I keep my medicine? Keep out of the reach of children. Store at room temperature between 20 and 25 degrees C (68 and 77 degrees F). Throw away any unused medicine after the expiration date. What should I tell my health care provider before I take this medicine? They need to know if you have any of these conditions: asthma bleeding problems like hemophilia cigarette smoker drink more than 3 alcohol containing drinks a day heart disease or circulation problems such as heart failure or leg edema (fluid retention) high blood pressure kidney disease liver disease stomach bleeding or ulcers an unusual or allergic reaction to ketorolac, aspirin, other NSAIDs, other medicines, foods, dyes, or preservatives or trying to get breast-feeding What should I watch for while using this medicine? Tell your doctor or health animal caretaker if your pain does not get better. Talk to your doctor before taking another medicine for pain. Do not treat yourself. This medicine does not prevent heart attack or stroke. In fact, this medicine may increase the chance of a heart attack or stroke. The chance may increase with longer use of this medicine and in people who have heart disease. If you take aspirin to prevent heart attack or stroke, talk with your doctor or health animal caretaker. Do not take medicines such as ibuprofen and naproxen with this medicine. Side effects such as stomach upset, nausea, or ulcers may be more likely to occur. Many medicines available without a prescription should not be taken with this medicine. This medicine can cause ulcers and bleeding in the stomach and intestines at any time during treatment. Do not smoke cigarettes or drink alcohol. These increase irritation to your stomach and can make it more susceptible to damage from this medicine. Ulcers and bleeding can happen without warning symptoms and can cause . You may get drowsy or dizzy. Do not drive, use machinery, or do anything that needs mental alertness until you know how this medicine affects you. Do not stand or sit up quickly, especially if you are an older patient. This reduces the risk of dizzy or fainting spells. This medicine can cause you to bleed more easily. Try to avoid damage to your teeth and gums when you brush or floss your teeth. You have been given the following additional information: Bladder Infection, Female (Adult) Ondansetron Oral disintegrating tablet Sulfamethoxazole, Trimethoprim Oral tablet Ketorolac Tromethamine Oral tablet (Electronically signed by Debora De La Fuente A.R.N.P. 04/04/2016 22:04)
== END 2016-04-04 16:25 | disposition home or self-care (01) ==
LOC: ED SRH 13:16
DX: N30.00 Acute cystitis without hematuria (principal); Z79.899 Other long term (current) drug therapy
CPT/HCPCS: 90004; 90047; 90070; 90469; 93070; 95059